=== PATIENT | female | born 1995 | race Caucasian/White ===

== ENCOUNTER 2022-06-07 17:37 | Emergency (ER) | payer BC ==
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
[2022-06-07 18:14] LABS: Urine Blood Negative (Negative); Urine Glucose Negative (Negative); Urine Protein Negative (Negative); Urine pH 6.5 (5.0-7.0)
[2022-06-07 18:14] LABS: Absolute Lymphocytes (CBC) 1.3 K/uL (0.7-4.9); Hematocrit 42.5 % (36.0-45.0); Lymphocytes % 25.4 % (15.3-44.8); MCV 99.4 fL (80-100); MPV 8.6 fL (7.6-11.3); RBC Red Blood Cell Count 4.28 M/uL (3.86-4.86)
[2022-06-07 18:17] LABS: Protime INR 1.03
[2022-06-07 18:32] LABS: Barbiturates NEGATIVE (NEGATIVE); Benzodiazepines NEGATIVE (NEGATIVE); Cocaine NEGATIVE (NEGATIVE); METHAMPHETAM NEGATIVE (NEGATIVE); Methadone NEGATIVE (NEGATIVE); Opiates NEGATIVE (NEGATIVE); Phencyclidine NEGATIVE (NEGATIVE); THC Cannibis POSITIVE (NEGATIVE)
[2022-06-07 18:39] LABS: ALT/SGPT 141 U/L (12-78); AST/SGOT 161 U/L (15-37); Albumin 4.7 g/dL (3.4-5.0); Alkaline Phosphatase 60 U/L (45-117); BUN Blood Urea Nitrogen 10 mg/dL (7-18); Bicarbonate 24 mmol/L (21-32); Bilirubin Direct 0.2 mg/dL (0-0.2); Bilirubin Total 0.4 mg/dL (0.2-1.0); Glomerular Filtration Rate 126 ml/min (=/>90); Glucose Level 79 mg/dL (74-106); Potassium 3.7 mmol/L (3.5-5.1); Sodium Level 140 mmol/L (136-145)
[2022-06-07] MEDS ORDERED: Ringers Lactate 1,000 ML IV ONE (18:40)
[2022-06-07] MEDS ORDERED: NICOTINE 21 MG/PAT TD ONE (18:47)
[2022-06-07 22:06] LABS: SARS-CoV-2 Antigen Rapid Res Negative (Negative)
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
--- NOTE | 2022-06-08 02:28 | EDPHYS ---
Physician Documentation [facility] Name: Sonia Abdul Age: 26 yrs Sex: Female : 1995 Arrival Date: 06/07/2022 Time: 17:38 Bed 17 Private MD: ED Physician Casey Carpenter HPI: 06/07 17:45 This 26 yrs old Female presents to ER via EMS with complaints of Suicidal Ideation. jmm 17:45 The patient presents to the emergency department with suicide ideation. Onset: The jmm symptoms/episode began/occurred today. Past psychiatric history: Psychiatric medications include: Klonipin. This is a 26 year old female with a history of anxiety that presents to the ED with suicidal ideations. Patient states she attempted to harm herself taking 12 0.5 mg clonazepam and drinking ETOH. Patient states being stressed over work and school. Denies trying to kill/harm herself in the past. . Historical: - Allergies: 06/08 01:44 Adhesives; aa9 - PMHx: 01:44 ADHD; Anxiety; Migraine; Depressive disorder; aa9 - Social history:: Smoking status: Patient denies any tobacco usage or history of. ROS: 06/07 17:45 Constitutional: Negative for fever, chills, and weight loss, Cardiovascular: Negative jmm for chest pain, palpitations, and edema, Respiratory: Negative for shortness of breath, cough, wheezing, and pleuritic chest pain. Psych: Positive for suicidal ideation. All other systems are negative. Exam: 17:45 Constitutional: This is a well developed, well nourished patient who is awake, alert, jmm and in no acute distress. Head/Face: atraumatic. Eyes: EOMI, no conjunctival erythema appreciated ENT: Moist Mucus Membranes Neck: Trachea midline, Supple Chest/axilla: Normal chest wall appearance and motion. Cardiovascular: Regular rate and rhythm. No edema appreciated Respiratory: Normal respirations, no respiratory distress appreciated Abdomen/GI: Non distended Back: Normal ROM Skin: General appearance color normal MS/ Extremity: Moves all extremities, no obvious deformities appreciated, no edema noted to the lower extremities 17:45 Neuro: Orientation: is normal, Mentation: is normal, Memory: is normal. 17:45 Psych: Behavior/mood is anxious. Vital Signs: 17:41 BP 131 / 98; Pulse 121; Resp 20; Temp 97.6; Pulse Ox 99% ; Pain 0/10; mb8 06/08 02:41 Weight 61.23 kg (R); Height 5 ft. 6 in. (167.64 cm) (R); aa9 03:55 BP 120 / 80; Pulse 109; Resp 17 S; Pulse Ox 98% on R/A; Pain 0/10; aa9 02:41 Body Mass Index 21.79 (61.23 kg, 167.64 cm) 9 MDM: 06/07 18:18 Patient medically screened. [facility] 06/08 00:27 Data reviewed: vital signs, nurses notes. [facility] 01:53 ED course: pt seen and evaluated by myself, still endorsing depression, feeling bs3 overwhelmed, and afraid she is going to harm herself. Pt willing to be admitted for psychiatric workup, will transfer. 06/07 17:45 Order name: Acetaminophen; Complete Time: 18:40 [facility] 06/07 17:45 Order name: Basic Metabolic Panel; Complete Time: 18:40 [facility] 06/07 17:45 Order name: CBC with Diff; Complete Time: 18:21 [facility] 06/07 17:45 Order name: ETOH Level; Complete Time: 18:26 [facility] 06/07 17:45 Order name: Hepatic Function; Complete Time: 18:40 [facility] 06/07 17:45 Order name: PT-INR; Complete Time: 18:21 [facility] 06/07 17:45 Order name: Ptt, Activated; Complete Time: 18:21 [facility] 06/07 17:45 Order name: Salicylate; Complete Time: 18:39 [facility] 06/07 17:45 Order name: Urine Drug Screen; Complete Time: 18:34 [facility] 06/07 18:15 Order name: Urine Dipstick-Ancillary; Complete Time: 18:21 [facility] 06/07 21:08 Order name: SARS RAPID; Complete Time: 22:06 [facility] 06/08 01:14 Order name: ETOH Level; Complete Time: 01:47 [facility] 06/07 17:45 Order name: EKG; Complete Time: 17:46 [facility] 06/07 17:45 Order name: EKG - Nurse/Tech; Complete Time: 18:38 [facility] 06/07 17:45 Order name: IV Saline Lock; Complete Time: 17:58 [facility] 06/07 17:45 Order name: Labs collected and sent; Complete Time: 17:58 [facility] 06/07 17:45 Order name: Suicide Screening ([place]); Complete Time: 17:46 [facility] 06/07 17:45 Order name: Urine Dipstick-Ancillary (obtain specimen); Complete Time: 18:15 jm Administered Medications: 06/07 18:45 Drug: Lactated Ringers Solution 1000 ml Route: IV; Rate: 250 ml/hr; Site: right [facility] antecubital; 06/08 04:01 Follow up: Response: No adverse reaction; IV Status: Completed infusion; IV Intake: aa9 1000ml 06/07 18:54 Drug: Nicotine Patch 21 mg/24 hr 1 patches Route: Transdermal; Site: affected area; [facility] Disposition: 06/08 02:27 Co-signature as Attending Physician, Casey Carpenter MD Attestation: The patient's bs3 history, exam findings, diagnostics, and a summary of any interventions or procedures was reviewed in detail with Samuel WORRELL. Disposition Summary: 06/08/22 02:27 Transfer Ordered Transfer Location: [facility] bs3 Reason: Higher level of care bs3 Condition: Stable bs3 Problem: an acute exacerbation bs3 Symptoms: have worsened bs3 Accepting Physician: OK(06/08/22 04:01) aa9 Diagnosis - Depressive disorder bs3 Forms: - Medication Reconciliation Form bs3 - SBAR form bs3 Signatures: Dispatcher [employer] Samuel Cummins PA PA [facility] Julio Durham, AUDIO VISUAL EQUIPMENT RENTAL CLERK-C AUDIO VISUAL EQUIPMENT RENTAL CLERK-Cla1 Rosemary Valdez RN RN aa9 García Justin RN RN mb8 Casey Carpenter MD MD bs3 Corrections: (The following items were deleted from the chart) 02:51 02:27 Susan bs3 bs3 04:01 02:51 OK vicente3 aa9
[2022-06-08 04:11] VITALS: TEMP 97.6
[2022-06-08 04:21] VITALS: BP 120/80; O2SAT 98
--- NOTE | 2022-06-10 16:05 | EKG ---
Test Date: 2022-06-07 Test Time: 18:38:12 Directory Clerk: TM MEASUREMENT RESULTS: Intervals: Rate: 97 [place]: 146 QRSD: 76 QT: 360 QTc: 457 [place]: P: 67 NJ: 146 QRS: 74 T: 65 INTERPRETIVE STATEMENTS: Normal sinus rhythm Possible Left atrial enlargement Borderline ECG No previous ECG available for comparison Electronically Signed On 06-10-22 15:59:58 CDT by Migue Kolb
== END 2022-06-08 04:01 ==
LOC: ER 17:37
DX: F32.A Depression, unspecified (principal); R45.851 Suicidal ideations; Z20.822 Contact with and (suspected) exposure to COVID-19; Z91.048 Other nonmedicinal substance allergy status
CPT/HCPCS: 96361; 93005; 85025; 80048; 36415; 80320 ×2; 80329 ×2; 85610; 80076; 85730; 81003; 80307; 96360; 99285; 87811; J7120